=== PATIENT | female | born 1950 | race Caucasian/White ===

== ENCOUNTER 2021-01-06 11:04 | Outpatient (CLI) | payer MEDICARE, SELFPAY ==
--- NOTE | 2021-01-06 11:56 | ECG_ITS ---
Measurements Intervals [place] Rate: 50 P: 31 [place]: 190 QRS: -42 QRSD: 113 T: 76 QT: 430 QTc: 394 Interpretive Statements SINUS BRADYCARDIA VENTRICULAR PREMATURE COMPLEXES LEFT AXIS DEVIATION INTRAVENTRICULAR CONDUCTION DELAY LOW QRS VOLTAGE IN PRECORDIAL LEADS ANTEROSEPTAL INFARCT, AGE INDETERMINATE BORDERLINE ST-T WAVE ABNORMALITY- LAT/HIGH LAT LEADS ABNORMAL ECG Electronically Signed On 01-06-2021 12:57:03 CDT by Slick Mak D.O.
[2021-01-06 12:10] LABS: Hematocrit 40.4 % (37.0-47.0); Hemoglobin 12.8 g/dL (12.0-15.0)
[2021-01-06 12:19] LABS: Urine Cotinine NEGATIVE
[2021-01-06 12:22] LABS: Albumin Level 4.2 g/dL (3.5-5.1); Estimated Glomerular Filt Rate 45; Glucose 84 mg/dL (65-110)
== END 2021-01-06 11:05 | disposition home or self-care (01) ==
PROVIDERS: Visit Provider Orthopaedic Surgery
DX: M16.12 Unilateral primary osteoarthritis, left hip (principal); Z01.818 Encounter for other preprocedural examination; I45.9 Conduction disorder, unspecified; R94.31 Abnormal electrocardiogram [ECG] [EKG]
CPT/HCPCS: 80307; 82040; 82565; 82947; 85014; 85018; 93005

== ENCOUNTER 2021-02-02 08:13 | Outpatient (CLI) | payer MEDICARE, SELFPAY ==
[2021-02-02 09:54] LABS: Basophils Percent Auto 0.8 % (0.2-1.2); Eosinophils Absolute Auto 0.5 K/mm3 (0-0.3); Eosinophils Percent Auto 9.1 % (0-4.4); Hematocrit 41.8 % (37.0-47.0); Hemoglobin 13.2 g/dL (12.0-15.0); Immature Granulocyte Absolute 0.01 K/mm3 (0.00-0.031); Immature Granulocyte Percent A 0.2 % (0-0.5); Lymphocytes Absolute Auto 1.28 K/mm3 (0.9-3.2); Lymphocytes Percent Auto 25.8 % (18.3-44.2); Mean Corpuscular HGB Conc 31.6 g/dl (32-36); Mean Corpuscular Hemoglobin 30.5 pg (26-34); Mean Corpuscular Volume 96.5 fl (80-100); Mean Platelet Volume 9.9 fl (7.4-10.4); Monocytes Absolute Auto 0.4 K/mm3 (0.1-0.6); Monocytes Percent Auto 8.7 % (2.6-8.5); Neutrophils Absolute Auto 2.8 K/mm3 (1.3-6.7); Neutrophils Percent Auto 55.4 % (45.5-73.1); Platelet Count Result 193 k/mm3 (150-375); Red Blood Count 4.33 M/mm3 (4.2-5.4); Red Cell Distribution Width 14.5 % (11.5-14.5)
[2021-02-02 10:02] LABS: Anion Gap 6 mmol/L (8-16); Blood Urea Nitrogen 28 mg/dL (7-17); Calcium 9.5 mg/dL (8.4-10.2); Carbon Dioxide 31 mmol/L (22-30); Chloride 103 mmol/L (98-107); Estimated Glomerular Filt Rate 45; Glucose 92 mg/dL (65-110); Potassium 4.6 mmol/L (3.4-5.0); Sodium 140 mmol/L (137-145)
[2021-02-02 10:11] LABS: Hemoglobin A1C 5.3 % (<5.7)
== END 2021-02-02 08:14 | disposition home or self-care (01) ==
LOC: ANHSURGERY 08:16
PROVIDERS: Anesthesiology; Visit Provider Orthopaedic Surgery
DX: M16.12 Unilateral primary osteoarthritis, left hip (principal); I10 Essential (primary) hypertension; Z01.818 Encounter for other preprocedural examination
CPT/HCPCS: 36415; 80048; 83036; 85025; 87081

== ENCOUNTER 2021-02-26 02:07 | Day surgery (SDC) | payer MEDICARE, SELFPAY ==
[2021-02-02 08:22] VITALS: BMI 33.6
[2021-02-02 08:57] VITALS: BP 132/87; PULSE 63; RESP 16; TEMP 36.9; O2SAT 100
--- NOTE | 2021-02-25 13:48 | WPDANESEPPF ---
Anes - Initial Pre Proc Eval Procedure: Operation Date: 02/26/21 07:30 Proposed Procedures p Left Total Hip Arthroplasty - Daniel Allen MD Date/Time: 02/25/21 13:48 Surgeon: Daniel Allen MD Pre Op Diagnosis: primary OA left hip Patient Data Age: 70 Gender: F Height: 1.57 m Weight: 83.4 kg Last Vital Signs Temp 36.9 C 02/02/21 08:57 Pulse 63 02/02/21 08:57 Resp 16 02/02/21 08:57 BP 132/87 02/02/21 08:57 Pulse Ox 100 02/02/21 08:57 Allergies Allergy/AdvReac Type Severity Reaction Status Date / Time lisinopril Allergy Mild Cough Verified 02/26/21 06:32 Home Medications Medication Instructions Recorded Confirmed Type aspirin 81 mg chewable tablet 81 mg PO DAILY 11/20/20 02/26/21 History magnesium oxide 400 mg PO BID 11/20/20 02/26/21 History pantoprazole 20 mg tablet,delayed 20 mg PO QPM 11/20/20 02/26/21 History release spironolactone 25 mg tablet 25 mg PO QPM 11/20/20 02/26/21 History acetaminophen [Tylenol Arthritis 650 mg PO Q12H PRN 02/02/21 02/26/21 History Pain] calcium carbonate [Tums 500] 500 mg PO DAILY 02/02/21 02/26/21 History carvedilol 3.125 mg tablet 3.125 mg PO DAILY tablet 02/02/21 02/02/21 History cholecalciferol (vitamin D3) 25 mcg PO DAILY 02/02/21 02/26/21 History vit A-vit C-vit [id number] [Eye 1 tablet PO BID 02/02/21 02/26/21 History Vitamin and Minerals] zinc 50 mg PO QMWF 02/02/21 02/26/21 History Patient hx anesthesia problems: none Family hx anesthesia problems: none Results Review: All pre-operative results and documents have been reviewed as part of the pre-operative evaluation. [facility] Past Medical History Medical History (Updated 02/26/21 @ 06:53 by Michael Hinds MD) Abdominal bruit CKD (chronic kidney disease) stage 3, GFR 30-59 ml/min History of cardiomyopathy History of carotid artery stenosis History of CHF (congestive heart failure) History of gastroesophageal reflux (GERD) History of hypertension Hyperlipidemia Obesity Palpitations PVCs (premature ventricular contractions) Shortness of breath SVT (supraventricular tachycardia) Venous insufficiency Ventricular tachycardia Surgical History Surgical History History of carpal tunnel release (~05/12/20) right History of hip replacement History of knee replacement left History of total knee replacement (~07/2016) Right Knee Family History Family History Father Cancer Mother Cancer Sibling Cancer Social History Social History Smoking status: Never smoker Additional smoking assessment comments: DENIES ANY FORM OF TOBACCO USE Alcohol intake: current Drinks per week: 3 Alcohol use details: socially Substance use: never Living arrangements: alone Spiritual care concerns: No Anes - Eval Final PreProcedure Day of Procedure 02/25/21 13:48 Patient weight: obese Heart: regular rate and rhythm Lungs: clear to auscultation and normal air movement Airway: Mallampati scale class II Neurological: alert and oriented Last oral intake: >/= 8 hours ASA classification: IV Emergent: no Anesthetic plan: proceed Anesthesia type and monitoring: general ETT Results Review: All pre-operative results and documents have been reviewed as part of the pre-operative evaluation. Informed Consent: The patient's anesthetic plan and its attendant risks and benefits were discussed with the patient/family/POA. Questions were solicited and answers provided to the satisfaction of the patient/family/POA.
[2021-02-26] VITALS (15 sets, daily range): BP systolic 93–119; BP diastolic 53–78; PULSE 46–78; RESP 10–20; TEMP 36.2–37.2; O2SAT 95–100; BMI 39.9
--- NOTE | ~2021-02-26 | XR_ITS ---
EXAMINATION: XR hip LT min 2V DATE: 02/26/2021 09:57 INDICATION: Total left hip arthroplasty. Postop. TECHNIQUE: 2 views of left hip were obtained. COMPARISON: Left hip radiographs 12/03/2020 FINDINGS: There is a total left hip arthroplasty in near-anatomic alignment. No fracture. There is ga s in the soft tissues, consistent with recent surgery. IMPRESSION: 1. Total left hip arthroplasty in near-anatomic alignment. Reviewed, dictated and finalized at location A. REPAIR TECHNICIAN
[2021-02-26] MEDS: LACTATED RINGERS 1,000 ML 30 ML IV CONT ×2 (07:01→09:46)
[2021-02-26] MEDS: TRANEXAMIC ACID 1,000MG/ISO100 1,000 MG/100 ML BAG 200 MG IVPB (07:04)
[2021-02-26] MEDS: ACETAMINOPHEN 500 MG TABLET 1000 MG PO ×4 (07:04→23:16)
--- NOTE | 2021-02-26 07:15 | WPDHPUPDATE1 ---
History and Physical Update Update Date/Time: 02/26/21 07:15 History and Physical has been reviewed, including an updated exam of the patient. There are NO changes in the patient's condition. Risks, benefits, and alternatives have been discussed and questions answered. Patient agrees to proceed with procedure.
[2021-02-26] MEDS: ceFAZolin 2 GM/D5W 50 ML 2 GM/50 ML BAG IVPB ×3 (07:26→23:16)
--- NOTE | 2021-02-26 09:58 | W.PM.PROC2 ---
Procedure Note - Detailed Date of Procedure 02/26/21 Pre-op Diagnosis Primary OA left hip Post-op Diagnosis same Procedure Performed Left Total Hip Arthroplasty Surgeon Daniel Allen MD Legal Process Specialist Sue Buitrago PA-C Anesthesia general Description of Procedure The patient was given preoperative antibiotics. A general anesthetic was administered. The patient was carefully placed in the lateral decubitus position on the PEG board. The shoulders and hips were carefully positioned for component and leg length positioning reference. The hip was prepped and draped in the usual sterile fashion. A longitudinal incision was created over the posterior aspect of the greater trochanter. Careful dissection was brought down through the deep fascia with electrocautery. A minimally invasive optimized posterior approach to the hip was performed. The short external rotators and capsule were taken down in an L-shaped capsulotomy. The tissue was tagged for later repair using number 2 high strength suture. The femoral neck was measured and taken in situ. The femoral head was removed. The acetabulum was carefully exposed. The inferior capsule was released. The labrum was resected. The acetabulum was sequentially reamed to the intended cup size. The cup was impacted into position with excellent press-fit. Typical anatomic landmarks, including the bony contact points as well as the inferior transverse acetabular ligament were used to confirm cup positioning with preoperative templating. Attention was turned to the femur, which was carefully exposed. The hip was reamed and then broached sequentially. Excellent press-fit was obtained with the broach. The hip was trialed. Measurements were utilized, including the lesser trochanter as well as the center of the femoral head and the tip of the trochanter, and excellent assessment of the offset and leg lengths were confirmed. The real component was impacted into position. Trialing confirmed appropriate leg length and offset with soft tissue balancing as well apparent feel of the leg, both at the knee and the heel. Soft tissues were assessed using the the iliotibial band. Reduction of the posterior capsule and external rotators were also used as a secondary assessment. The hip was copiously irrigated with pulsatile lavage antibiotic solution periodically throughout the procedure. The real components were then assembled and reduced. The hip was stable throughout typical maneuvers, including extension, external rotation to 70 degrees, the position of sleep as well as flexion to 90 degrees with internal rotation past 45 degrees. The shake test confirmed stability without impingement. Osteophytes were removed as necessary. The short external rotators and capsule were repaired back to the posterior trochanter through drill holes. The deep fascia was repaired with running number 2 Quill suture, followed by 0 Stratafix suture and 2-0 Stratafix suture in the dermis. Steri-Strips were placed on the skin, followed by a sterile silver occlusive dressing. There were no complications. Meticulous hemostasis was maintained with the AquaMantys device. The patient was brought to the recovery room in stable condition. There were no complications. Physician licensed physical therapy assistant, Sue Buitrago PA-C, required for surgery; including patient positioning, draping, tissue retraction, maintaining instrument position, hip dislocation, wound closure, and dressing placement. Implants The Accolade II hip stem, 127 degree size 5 , was utilized with excellent press-fit. The 48 mm Trident II acetabular component was impacted with excellent press-fit stability. 10 degree elevated liner. The -2.5 , 36 mm Biolox ceramic femoral head was utilized. Estimated Blood Loss 200 Drains No Packing No Pathology none sent Complications No immediate complications Condition stable Disposition PACU
[2021-02-26] MEDS: fentaNYL CITRATE INJ (*CRX) 100 MCG/2 ML VIAL 25 MCG IV PUSH ×6 (10:03→10:34)
--- NOTE | 2021-02-26 11:27 | ADMGEN ---
This patient, Melissa Franklin, was admitted to Medical Room 244-01. Patient oriented to hospital policies and general routines including ID bracelet, bed and alarms, visiting hours, pain management, procedures, bathroom and other care routines, personal items, smoking policy, room service/diet, and visiting hours. Information on how to activate the Rapid Response Team has been discussed. Patient are encouraged to report perceived risks to care and to ask questions if they do not understand what they are told or what they should do.
[2021-02-26 11:28] LABS: Hematocrit 34.2 % (37.0-47.0); Hemoglobin 11.1 g/dL (12.0-15.0)
[2021-02-26] MEDS: SODIUM CHLORIDE 0.9% IV 1,000 ML 125 ML IV CONT (11:48)
[2021-02-26] MEDS: MAGNESIUM OXIDE 400 MG TABLET PO (16:30)
[2021-02-26] MEDS: ASPIRIN 81 MG ENTERIC TABLET PO (16:30)
[2021-02-26] MEDS: DOCUSATE SODIUM 100 MG CAPSULE PO (16:30)
[2021-02-26] MEDS: PANTOPRAZOLE SOD SESQUIHYDRATE 20 MG TAB PO (17:58)
[2021-02-26] MEDS: SPIRONOLACTONE 25 MG TABLET PO (17:58)
[2021-02-26] MEDS: FAMOTIDINE 20 MG TABLET PO (20:31)
[2021-02-27 04:14] VITALS: BP 96/52; PULSE 74; RESP 20; TEMP 36.8; O2SAT 94
[2021-02-27 05:49] LABS: Basophils Percent Auto 0.3 % (0.2-1.2); Eosinophils Absolute Auto 0.1 K/mm3 (0-0.3); Eosinophils Percent Auto 0.9 % (0-4.4); Hematocrit 30.5 % (37.0-47.0); Hemoglobin 9.7 g/dL (12.0-15.0); Immature Granulocyte Absolute 0.03 K/mm3 (0.00-0.031); Immature Granulocyte Percent A 0.3 % (0-0.5); Lymphocytes Absolute Auto 1.22 K/mm3 (0.9-3.2); Lymphocytes Percent Auto 12.5 % (18.3-44.2); Mean Corpuscular HGB Conc 31.8 g/dl (32-36); Mean Corpuscular Hemoglobin 30.6 pg (26-34); Mean Corpuscular Volume 96.2 fl (80-100); Mean Platelet Volume 9.9 fl (7.4-10.4); Monocytes Percent Auto 9.7 % (2.6-8.5); Neutrophils Absolute Auto 7.5 K/mm3 (1.3-6.7); Neutrophils Percent Auto 76.3 % (45.5-73.1); Platelet Count Result 141 k/mm3 (150-375); Red Blood Count 3.17 M/mm3 (4.2-5.4); Red Cell Distribution Width 14.1 % (11.5-14.5); White Blood Count 9.8 K/mm3 (4.5-10.0)
[2021-02-27 05:54] LABS: Anion Gap 1 mmol/L (8-16); Blood Urea Nitrogen 23 mg/dL (7-17); Calcium 8.4 mg/dL (8.4-10.2); Carbon Dioxide 29 mmol/L (22-30); Chloride 107 mmol/L (98-107); Estimated CRCL calculation 43 ml/min; Estimated Glomerular Filt Rate 45; Glucose 108 mg/dL (65-110); Potassium 4.1 mmol/L (3.4-5.0); Sodium 137 mmol/L (137-145)
[2021-02-27] MEDS: ACETAMINOPHEN 500 MG TABLET 1000 MG PO ×2 (06:20→11:20)
[2021-02-27] MEDS: ceFAZolin 2 GM/D5W 50 ML 2 GM/50 ML BAG IVPB (06:20)
[2021-02-27 08:28] VITALS: PULSE 78
[2021-02-27] MEDS: carvediloL 3.125 MG TABLET PO (08:28)
[2021-02-27] MEDS: ZINC SULFATE 220 MG CAPSULE PO (08:28)
[2021-02-27] MEDS: FAMOTIDINE 20 MG TABLET PO (08:28)
[2021-02-27] MEDS: DOCUSATE SODIUM 100 MG CAPSULE PO (08:28)
[2021-02-27] MEDS: CALCIUM CARBONATE (TUMS) 500 MG (200 MG ELEMENTAL) PO (08:28)
[2021-02-27] MEDS: THERAPEUTIC MULTIVITAMINS/MINERALS TAB (*BKC) 1 TABLET PO (08:28)
[2021-02-27] MEDS: ASPIRIN 81 MG ENTERIC TABLET PO (08:28)
[2021-02-27] MEDS: CHOLECALCIFEROL 1,000 UNITS TABLET 1000 UNITS PO (08:28)
[2021-02-27] MEDS: MAGNESIUM OXIDE 400 MG TABLET PO (08:28)
[2021-02-27 08:31] VITALS: BP 103/56
--- NOTE | 2021-02-27 09:38 | PM.DS ---
DS: Admitting Diagnosis Discharge Date 02/27/2021 Admitting Diagnosis OA Left hip DS: Discharge Diagnosis Discharge Diagnosis (1) Orthopedic aftercare for joint replacement: Code(s): Z47.1 - Aftercare following joint replacement surgery Status: Acute (2) Status post total hip replacement, left: Code(s): Z96.642 - Presence of left artificial hip joint Status: Acute Assessment and Plan: Postop day 1: Total hip arthroplasty left. Patient tolerated procedure well. No complications. Pain manageable with pain medication. No numbness or tingling. We had a lengthy discussion regarding postoperative wound care, limitations, expectations, and exercises. Patient shows good understanding. Patient has had initial physical therapy and is tolerating it well. DVT prophylaxis: 81 mg baby aspirin b.i.d. for 14 days. Short frequent walks. Pain medication: Percocet. Ibuprofen. Patient has followup appointment with Dr. Allen in 3 weeks DS: Summary Hospital Course Reason for hospitalization: Total hip arthroplasty Hospital Course: Patient tolerated procedure well. Has had initial PT/OT. Patient did have bleeding from incision site. Dressing removed, cleaned with Betadine, steri strips reapplied, dressing reapplied. No drainage at the time of discharge. Status at Discharge Functional status at discharge: uses cane/walker Overall status at discharge: patient is progressing back to baseline Time Spent with Patient Time attestation: Total time spent providing and/or coordinating discharge services: Exam Narrative: overweight 70 y/o female. Resting comfortably in chair. Wearing compression socks bilaterally. Dressing dry and intact with no drainage. Moderate swelling. Mild ecchymosis. No erythema. No hematoma. Range of motion limited due to pain. Calf nontender. Thigh nontender. Neurologic status intact. No varicosities. Distal pulses palpable. DS: Data Data Completed and Pending Labs on day of discharge: Labs from last 24 hours 02/27/21 02/27/21 02/26/21 05:22 05:22 11:18 WBC 9.8 RBC 3.17 L Hgb 9.7 L 11.1 L Hct 30.5 L 34.2 L MCV 96.2 MCH 30.6 MCHC 31.8 L RDW 14.1 Plt Count 141 L MPV 9.9 Immature Gran % (Auto) 0.3 Neut % (Auto) 76.3 H Lymph % (Auto) 12.5 L [place] % (Auto) 9.7 H Eos % (Auto) 0.9 Baso % (Auto) 0.3 Lymph # (Auto) 1.22 [place] # (Auto) 1.0 H Eos # (Auto) 0.1 Baso # (Auto) 0.0 Abs Immat Gran (auto) 0.03 Absolute Neuts (auto) 7.5 H Absolute Nucleated RBC 0.0 Nucleated RBC % 0.0 Sodium 137 Potassium 4.1 Chloride 107 Carbon Dioxide 29 Anion Gap 1 L BUN 23 H Creatinine 1.20 H Estim Creat Clear Calc 43 Estimated GFR 45 L Glucose 108 Calcium 8.4 Discharge Plan Discharge Patient Disposition: Home, Self-Care Discharge Instructions: See instruction sheet Stand Alone Forms: General Discharge Instructions Follow-up/Referrals: Sue Buitrago PA [Physician Studio Coordinator] - Discharge Medications: New aspirin 81 mg tablet,delayed release (DR/EC) 81 mg PO BID 14 Days Qty: 28 RF: 0 oxycodone-acetaminophen 5-325 mg tablet 1 - 2 tablet PO Q4-6H MDD 6 PRN (Reason: pain) Qty: 30 RF: 0 Continued pantoprazole 20 mg tablet,delayed release (DR/EC) 20 mg PO QPM RF: 0 spironolactone 25 mg tablet 25 mg PO QPM RF: 0 magnesium oxide 400 mg magnesium capsule 400 mg PO BID RF: 0 carvedilol 3.125 mg tablet 3.125 mg PO DAILY RF: 0 calcium carbonate 500 mg calcium (1,250 mg) Tablet,Chewable 500 mg PO DAILY RF: 0 zinc 50 mg Capsule 50 mg PO QMWF RF: 0 vit A-vit C-vit E-lfdu-frxuit [id number] oadp-fz-[id number] Tablet 1 tablet PO BID RF: 0 cholecalciferol (vitamin D3) 25 mcg (1,000 unit) Tablet 25 mcg PO DAILY RF: 0 Held aspirin 81 mg tablet,chewable 81 mg PO DAILY RF: 0 Hold Instructions: Re
[2021-02-27 10:00] VITALS: BP 109/58; PULSE 77; RESP 16; TEMP 36.4; O2SAT 97
[2021-02-27] MEDS: oxyCODONE HCL (*CRX) 5 MG TAB IR PO (11:20)
== END 2021-02-27 13:20 | disposition home or self-care (01) ==
LOC: ANHSURGERY 06:25 → ANH2MED 11:12
PROVIDERS: Physician Assistant Surgical; Visit Provider Orthopaedic Surgery
PROC: (CPT 27130; principal; 2021-02-26 07:30)
DX: M16.12 Unilateral primary osteoarthritis, left hip (principal); I65.29 Occlusion and stenosis of unspecified carotid artery; I13.0 Hypertensive heart and chronic kidney disease with heart failure and stage 1 through stage 4 chronic kidney disease, or unspecified chronic kidney disease; N18.30 Chronic kidney disease, stage 3 unspecified; K21.9 Gastro-esophageal reflux disease without esophagitis; I50.9 Heart failure, unspecified; E78.5 Hyperlipidemia, unspecified; R00.2 Palpitations; I49.3 Ventricular premature depolarization; I47.1 Supraventricular tachycardia; I87.2 Venous insufficiency (chronic) (peripheral); I47.2 Ventricular tachycardia; Z79.82 Long term (current) use of aspirin; E66.01 Morbid (severe) obesity due to excess calories; Z68.41 Body mass index [BMI] 40.0-44.9, adult
CPT/HCPCS: 27130; 36415; 73502; 80048; 85014; 85018; 85025; 86850; 86900; 86901; 97110; 97116; 97161; 97165; 97530; 97535; A9270; C1776; J0171; J0690; J1100; J1885; J2270; J2405; J2704; J2710; J2795; J3010; J7030; J7120

== ENCOUNTER 2024-11-19 12:41 | Emergency (ER) | payer MEDICARE, SELFPAY ==
--- NOTE | 2024-11-19 12:51 | ED_ITS ---
HPI - Extremity Problem General Chief complaint: Wound/Laceration Stated complaint: leg irritation Time Seen by Provider: 11/19/24 12:52 Source: patient Mode of arrival: ambulatory Limitations: no limitations History of Present Illness HPI Narrative: Melissa is a 73 year old male patient presenting to the clinic today with complaints of a wound to the right lower anterior leg just above the ankle that does not appear to be healing. She reports that she cut her left lower leg 3 weeks ago when a glass table broke. Denies any foreign body in the wound. Did not seek medical treatment at the time it occurred. No fevers, chills, body aches. Does have some mild pain around the area with some drainage. Has been applying Neosporin to the wound. Contacted her PCP and they are on vacation. Tdap unknown Related Data Home Medications ?Medication ?Instructions ?Recorded ?Confirmed ?Last Taken ?Type aspirin 81 mg chewable tablet 81 mg PO DAILY 11/20/20 03/05/22 02/19/21 History magnesium oxide 400 mg PO BID 11/20/20 03/05/22 02/25/21 History pantoprazole 20 mg tablet,delayed 20 mg PO QPM 11/20/20 03/05/22 02/25/21 History release spironolactone 25 mg tablet 25 mg PO QPM 11/20/20 03/05/22 02/25/21 History calcium carbonate 500 mg PO DAILY 02/02/21 03/05/22 02/23/21 History carvedilol 3.125 mg tablet 3.125 mg PO DAILY 02/02/21 03/05/22 02/25/21 History vit A 7,160 unit-vit C 113 mg-vit 1 tablet PO BID 02/02/21 03/05/22 02/22/21 History E 100 [id number]-onypjr tablet zinc 50 mg capsule 50 mg PO QMWF 02/02/21 03/05/22 02/22/21 History Allergies Allergy/AdvReac Type Severity Reaction Status Date / Time lisinopril Allergy Mild Cough Verified 03/05/22 11:20 Review of Systems Review of Systems: Pertinent positives per HPI. Patient denies any fever, chills, rash, headache, visual changes, dizziness, cough, runny nose, sore throat, shortness of breath, chest pain, palpitations, nausea, vomiting, diarrhea, constipation, abdominal pain, or any urinary issues. [facility] Past Medical History Medical History Obesity CKD (chronic kidney disease) stage 3, GFR 30-59 ml/min Venous insufficiency Shortness of breath Palpitations Abdominal bruit History of cardiomyopathy History of CHF (congestive heart failure) Hyperlipidemia PVCs (premature ventricular contractions) SVT (supraventricular tachycardia) Ventricular tachycardia History of hypertension History of gastroesophageal reflux (GERD) History of carotid artery stenosis Surgical History Surgical History History of total left hip arthroplasty (~02/26/21) History of carpal tunnel release (~05/12/20) right History of total knee replacement (~07/2016) Right Knee History of knee replacement left Family History Family History Father Cancer Mother Cancer Sibling Cancer Social History Social History Smoking status: Never smoker Second hand tobacco smoke exposure: No Additional smoking assessment comments: DENIES ANY FORM OF TOBACCO USE Alcohol intake: never Drinks per week: 3 Alcohol use details: socially Substance use: never Lack of Transportation: No Lack of Food: Never True Current Housing: I Have Housing Concerned About Future Housing: No Difficulty Paying Gas/Electric Bills: No Difficulty Paying for Meds: No Currently Unemployed: No Education: Bachelor's Degree Difficulty w/ Childcare or Family Care: No Living arrangements: alone Spiritual care concerns: No Comments At the time of my signature, I reviewed and agree with the nursing past medical, surgical, social, and family history. There is no relevant family history pertinent to the patient complaint. Exam Narrative: General: Well-developed, well nourished, in no apparent distress Head: Normocephalic, atraumatic. Cardio: Regular rate and rhythm, s1 and s2 normal, no murmur appreciated. Resp: Clear to auscultation bilaterally, no rhonchi, rales, wheezing or rubs. Integumentary: [place], warm, and dry, 2 cm x 0.5 cm to the right lower anterior leg, redness with mild swelling around the laceration with some greenish discharge. Mildly tender to palpation with mild erythema, no bleeding Course Course Emergency Course: Portions of this record may have been created with voice recognition software. Level of Care: Express Care Visit Vital Signs Vital signs: Vital Signs Temperature 36.2 C L 11/19/24 12:54 Pulse Rate 64 11/19/24 12:54 Respiratory Rate 18 11/19/24 12:54 Blood Pressure 145/88 H 11/19/24 12:54 Pulse Oximetry 97 11/19/24 12:54 Oxygen Delivery Room Air 11/19/24 12:54 Temperature 36.2 C L 11/19/24 12:54 Pulse Rate 64 11/19/24 12:54 Respiratory Rate 18 11/19/24 12:54 Blood Pressure 145/88 H 11/19/24 12:54 Pulse Oximetry 97 11/19/24 12:54 Oxygen Delivery Room Air 11/19/24 12:54 Vital signs reviewed MDM - Extremity (Nontraumatic) MDM Narrative Medical decision making narrative: At the time of visit patient is resting comfortably on the exam table. Patient appears to be nontoxic. complaints of a wound to the right lower anterior leg just above the ankle that does not appear to be healing. She reports that she cut her left lower leg 3 weeks ago when a glass table broke. Denies any foreign body in the wound. Did not seek medical treatment at the time it occurred. No fevers, chills, body aches. Does have some mild pain around the area with some drainage. Has been applying Neosporin to the wound. Contacted her PCP and they are on vacation. Tdap was ordered. Wound cleanse and culture was obtained Plan: I suspect patient has an infected laceration to the right lower anterior leg. Prescription for cephalexin was sent to the pharmacy. Keep wound clean and dry and allow for it to heal. Follow-up with PCP in 2-3 days for wound check. Supportive measures were discussed with the patient and they voiced understanding discharge instructions and agrees to treatment plan. Return precautions reviewed Differential Diagnosis Differential diagnosis: Likely cellulitis and other (Infected wound, encounter for immunization,) Discharge Plan Discharge Clinical Impression: Infected laceration Patient Disposition: Home Condition: Stable Instructions: Antibiotic Form, Wound Infection (ED) Additional Instructions: Tdap given in the clinic today. Take cephalexin as prescribed May apply band aide covering as needed. Keep wound clean and dry Watch for signs and symptoms of worsening infection- redness, streaking, swelling, purulent discharge, or increase in pain. Follow up with your PCP in 2-3 days for wound check Patient Language: Albanian Prescriptions: New cephalexin 500 mg capsule 500 mg PO Q8H 7 Days Qty: 21 0RF No Action pantoprazole 20 mg tablet,delayed release (DR/EC) 20 mg PO QPM spironolactone 25 mg tablet 25 mg PO QPM magnesium oxide 400 mg magnesium capsule 400 mg PO BID aspirin 81 mg tablet,chewable 81 mg PO DAILY carvedilol 3.125 mg tablet 3.125 mg PO DAILY Rx Instructions: must administer with a meal/food calcium carbonate 500 mg calcium (1,250 mg) Tablet,Chewable 500 mg PO DAILY zinc 50 mg Capsule 50 mg PO QMWF vit A-vit C-vit A-mydh-llyclr [id number] fswk-[id number] Tablet 1 tablet PO BID Follow-up/Referrals: Isi,SILVA Coleman [Primary Care Provider] - Time of Disposition: 13:01 Quality NIHSS Nursing Documentation ED NIHSS nursing documentation: reviewed/agree
[2024-11-19 12:54] VITALS: BP 145/88; PULSE 64; RESP 18; TEMP 36.2; O2SAT 97
[2024-11-19] MEDS: TETANUS,DIPHTHERIA,AC PERTUSSIS ADULT (0.5 ML) BOOSTRIX IM (13:07)
== END 2024-11-19 13:17 | disposition home or self-care (01) ==
PROVIDERS: Emergency Provider Nurse Practitioner Family; PCP Physician Assistant
DX: S81.811A Laceration without foreign body, right lower leg, initial encounter (principal); L08.9 Local infection of the skin and subcutaneous tissue, unspecified; W25.XXXA Contact with sharp glass, initial encounter; Z23 Encounter for immunization; I13.0 Hypertensive heart and chronic kidney disease with heart failure and stage 1 through stage 4 chronic kidney disease, or unspecified chronic kidney disease; N18.30 Chronic kidney disease, stage 3 unspecified; I50.9 Heart failure, unspecified; I42.9 Cardiomyopathy, unspecified; E78.5 Hyperlipidemia, unspecified; K21.9 Gastro-esophageal reflux disease without esophagitis; I87.2 Venous insufficiency (chronic) (peripheral); E66.9 Obesity, unspecified; Z68.35 Body mass index [BMI] 35.0-35.9, adult; Z96.653 Presence of artificial knee joint, bilateral; Z79.82 Long term (current) use of aspirin
CPT/HCPCS: 90471; 90715; 99213; G0463